=== PATIENT | male | born 1950 | race Caucasian/White ===

== ENCOUNTER 2017-01-27 17:50 | Emergency (ER) | payer SELFPAY | END 2017-01-27 18:44 | disposition left against medical advice (07) | LOC: ERS 17:50 | DX: R05 Cough (principal); E78.5 Hyperlipidemia, unspecified; F17.210 Nicotine dependence, cigarettes, uncomplicated | CPT/HCPCS: 99283 ==

== ENCOUNTER 2017-01-28 15:31 | Emergency (ER) | payer MEDICARE, SELFPAY | END 2017-01-28 16:16 | disposition left against medical advice (07) | LOC: ERS 15:31 | DX: R05 Cough (principal); E78.5 Hyperlipidemia, unspecified; F17.210 Nicotine dependence, cigarettes, uncomplicated | CPT/HCPCS: 99283 ==

== ENCOUNTER 2021-07-22 17:47 | Emergency (ER) | payer MEDICARE | END 2021-07-22 18:35 | disposition home or self-care (01) | LOC: ERS 17:47 | DX: H65.92 Unspecified nonsuppurative otitis media, left ear (principal); R59.0 Localized enlarged lymph nodes; E78.5 Hyperlipidemia, unspecified; E78.00 Pure hypercholesterolemia, unspecified; F17.210 Nicotine dependence, cigarettes, uncomplicated | CPT/HCPCS: 99283 ==